=== PATIENT | male | born 1995 | race Two or more races ===

== ENCOUNTER 2019-02-26 22:41 | Emergency (ER) | payer MEDICAID ==
[~2019-02-26] VITALS: Ht 167.6 cm; Wt 90.3 kg
[2019-02-26 22:50] VITALS: Ht 167.6 cm; Wt 90.3 kg
[2019-02-27 00:53] VITALS: BP 122/74
== END 2019-02-27 00:53 | disposition home or self-care (01) ==
LOC: ED 22:41
DX: M54.5 Low back pain (principal); M25.552 Pain in left hip; W01.0XXA Fall on same level from slipping, tripping and stumbling without subsequent striking against object, initial encounter; Y93.89 Activity, other specified; Y92.091 Bathroom in other non-institutional residence as the place of occurrence of the external cause; Y99.8 Other external cause status
CPT/HCPCS: J1885